=== PATIENT | male | born 1980 | race Caucasian/White ===

== ENCOUNTER 2016-12-07 07:27 | Emergency (ER) | payer OTHER ==
[~2016-12-07] VITALS: Ht 180.3 cm; Wt 130.0 kg
[~2016-12-07 07:27] MED LIST: LEXAPRO20 MG OR; LISINOPRIL20 MG PO; LORAZEPAM2 MG OR; MEDDOSEPAK PO; NAPROSYN500 MG OR; TOPROL XL OR; VYTORIN1 TA1 OR
[2016-12-07] MEDS ORDERED: MOTRIN800 MG PO (08:10)
[2016-12-07 08:17] VITALS: BP 128/92
== END 2016-12-07 08:20 | disposition home or self-care (01) | DRG 554 ==
LOC: ED 07:27
DX: M19.031 Primary osteoarthritis, right wrist (principal); Z98.890 Other specified postprocedural states

== ENCOUNTER 2018-07-15 18:31 | Emergency (ER) | payer OTHER ==
[~2018-07-15] VITALS: Ht 177.8 cm; Wt 122.7 kg
[~2018-07-15 18:31] MED LIST changes: +MOTRIN800 MG PO
[2018-07-15] MEDS ORDERED: METO50TA52 PO (19:07)
[2018-07-15] MEDS ORDERED: TRAMADOL HYDROC50 MG PO (19:08)
[2018-07-15 19:20] LABS: HEMATOCRIT 44.5 % (39.0-50.0); HEMOGLOBIN 14.8 g/dl (14.0-18.0); IMMATURE GRANULOCYTES 0.5 % (0.0-5.0); MEAN CELL VOLUME 87.3 fL CALC (80.0-100.0); MEAN CORPUSCULAR HGB CONC 33.3 g/L CALC (32.0-36.0); NEUT# 7.55 thou/uL (1.82-7.42); RED BLOOD COUNT 5.1 mill/uL (4.70-6.10); RED CELL DISTRI WIDTH 13.2 % (11.5-15.5)
[2018-07-15 19:28] LABS: ALBUMIN 4.2 g/dL (3.2-5.0); ALKALINE PHOSPHATASE 85 u/l (38-126); AMYLASE 86 u/l (30-110); ANION GAP 12 (6-22 (CALC)); BILIRUBIN, TOTAL 0.6 mg/dL (0.0-1.4); BUN 14 mg/dL (9-20); BUN/CREATININE RATIO 11 (12-20 (CALC)); CARBON DIOXIDE 25 mmol/l (22-30); CHLORIDE 106 mmol/l (95-108); CREATININE 1.2 mg/dL (0.7-1.3); GFR > 60 ML/MIN (>=60 (CALC)); GFR FOR AFR.AMER. > 60 ML/MIN (>=60 (CALC)); LIPASE 189 u/l (23-300); SGOT/AST 29 u/l (17-59); SODIUM 139 mmol/l (137-146); TOTAL PROTEIN 6.8 g/dL (6.3-8.2)
[2018-07-15 20:36] LABS: URINE BILIRUBIN - DIPSTICK NEGATIVE (NEGATIVE); URINE BLOOD DIPSTICK NEGATIVE (NEGATIVE); URINE COLOR YELLOW; URINE GLUCOSE - DIPSTICK NEGATIVE (NEGATIVE); URINE KETONE NEGATIVE (NEGATIVE); URINE LEUK ESTERASE NEGATIVE (NEGATIVE); URINE NITRITE - DIPSTICK NEGATIVE (Negative); URINE PROTEIN - DIPSTICK NEGATIVE (NEG-TRACE); URINE UROBILINOGEN - DIPSTICK 0.2 E.U./dL (0.2)
[2018-07-15] MEDS ORDERED: NAPROSYN500 MG PO (21:11)
[2018-07-15 21:40] VITALS: BP 120/65
== END 2018-07-15 21:33 | disposition home or self-care (01) | DRG 313 ==
LOC: ED 18:31
PROVIDERS: Emergency Medicine
DX: R07.89 Other chest pain (principal); R91.1 Solitary pulmonary nodule; I10 Essential (primary) hypertension
CPT/HCPCS: Q9967

== ENCOUNTER 2018-10-01 04:49 | Emergency (ER) | payer OTHER ==
[~2018-10-01] VITALS: Ht 177.8 cm; Wt 122.7 kg
[~2018-10-01 04:49] MED LIST changes: +METO50TA52 PO; +NAPROSYN500 MG PO; +TRAMADOL HYDROC50 MG PO
[2018-10-01] MEDS ORDERED: BYSTOLIC20 MG PO (05:08)
[2018-10-01] MEDS ORDERED: OMEPRAZOLE DR10 MG (05:08)
[2018-10-01 06:03] LABS: HEMATOCRIT 44.5 % (39.0-50.0); HEMOGLOBIN 14.6 g/dl (14.0-18.0); IMMATURE GRANULOCYTES 0.5 % (0.0-5.0); MEAN CELL VOLUME 88.1 fL CALC (80.0-100.0); MEAN CORPUSCULAR HGB 28.9 pG CALC (26.0-32.0); MEAN CORPUSCULAR HGB CONC 32.8 g/L CALC (32.0-36.0); NEUT# 8.22 thou/uL (1.82-7.42); RED BLOOD COUNT 5.05 mill/uL (4.70-6.10)
[2018-10-01 06:22] LABS: ALBUMIN 4.1 g/dL (3.2-5.0); ALKALINE PHOSPHATASE 79 u/l (38-126); AMYLASE 52 u/l (30-110); ANION GAP 14 (6-22 (CALC)); BILIRUBIN, TOTAL 0.6 mg/dL (0.0-1.4); BUN 10 mg/dL (9-20); BUN/CREATININE RATIO 11 (12-20 (CALC)); CARBON DIOXIDE 27 mmol/l (22-30); CHLORIDE 105 mmol/l (95-108); GFR > 60 ML/MIN (>=60 (CALC)); GFR FOR AFR.AMER. > 60 ML/MIN (>=60 (CALC)); LIPASE 119 u/l (23-300); POTASSIUM 3.9 mmol/l (3.5-5.1); SGOT/AST 19 u/l (17-59); SODIUM 142 mmol/l (137-146); TOTAL PROTEIN 7.1 g/dL (6.3-8.2)
[2018-10-01 06:32] LABS: MYOGLOBIN 39 ng/mL (0 - 121)
[2018-10-01 06:41] LABS: URINE BILIRUBIN - DIPSTICK NEGATIVE (NEGATIVE); URINE BLOOD DIPSTICK NEGATIVE (NEGATIVE); URINE COLOR YELLOW; URINE GLUCOSE - DIPSTICK NEGATIVE (NEGATIVE); URINE KETONE NEGATIVE (NEGATIVE); URINE LEUK ESTERASE NEGATIVE (NEGATIVE); URINE NITRITE - DIPSTICK NEGATIVE (Negative); URINE PROTEIN - DIPSTICK NEGATIVE (NEG-TRACE); URINE SPECIFIC GRAVITY 1.015; URINE UROBILINOGEN - DIPSTICK 0.2 E.U./dL (0.2)
[2018-10-01 06:46] LABS: BARBITURATES NEGATIVE (NEGATIVE); COCAINE NEGATIVE (NEGATIVE); METHADONE NEGATIVE (NEGATIVE); OXCYCODONE NEGATIVE (NEGATIVE); TETRAHYDROCANNABIONOL NEGATIVE (NEGATIVE); TRICYLIC ANTIDEPRESSANTS NEGATIVE (NEGATIVE)
[2018-10-01 09:17] VITALS: BP 174/84
== END 2018-10-01 09:17 | disposition home or self-care (01) | DRG 313 ==
LOC: ED 04:49
PROVIDERS: Emergency Medicine
DX: R07.9 Chest pain, unspecified (principal); I10 Essential (primary) hypertension; K21.9 Gastro-esophageal reflux disease without esophagitis

== ENCOUNTER 2018-12-30 19:40 | Emergency (ER) | payer OTHER ==
[~2018-12-30] VITALS: Ht 177.8 cm; Wt 126.0 kg
[~2018-12-30 19:40] MED LIST changes: +BYSTOLIC20 MG PO; +OMEPRAZOLE DR10 MG
[2018-12-30] MEDS ORDERED: ULORIC40 MG PO (19:50)
[2018-12-30] MEDS ORDERED: TYLENOL # 31 TA1 PO (19:51)
[2018-12-30 21:22] VITALS: BP 148/96
== END 2018-12-30 21:22 | disposition home or self-care (01) | DRG 554 ==
LOC: ED 19:40
DX: M19.071 Primary osteoarthritis, right ankle and foot (principal); I10 Essential (primary) hypertension; M10.9 Gout, unspecified

== ENCOUNTER 2019-02-09 08:08 | Emergency (ER) | payer OTHER ==
[~2019-02-09] VITALS: Ht 177.8 cm; Wt 148.0 kg
[~2019-02-09 08:08] MED LIST changes: +TYLENOL # 31 TA1 PO; +ULORIC40 MG PO
[2019-02-09] MEDS ORDERED: BYSTOLIC5 MG PO (08:17)
[2019-02-09] MEDS ORDERED: ULORIC40 MG PO (08:18)
[2019-02-09] MEDS ORDERED: INDOMETHACIN50 MG PO (10:00)
[2019-02-09 10:30] VITALS: BP 167/100
== END 2019-02-09 10:30 | disposition home or self-care (01) | DRG 554 ==
LOC: ED 08:08
DX: M10.022 Idiopathic gout, left elbow (principal); I10 Essential (primary) hypertension

== ENCOUNTER 2019-03-10 | Emergency (ER) | payer OTHER ==
[~2019-03-10] MED LIST changes: +BYSTOLIC5 MG PO; +INDOMETHACIN50 MG PO
[2019-03-10] MEDS ORDERED: TRAMADOL HCL50 MG PO (10:26)
[2019-03-10 11:16] LABS: HEMATOCRIT 43.4 % (39.0-50.0); HEMOGLOBIN 14.3 g/dl (14.0-18.0); IMMATURE GRANULOCYTES 0.4 % (0.0-5.0); MEAN CELL VOLUME 87.9 fL CALC (80.0-100.0); MEAN CORPUSCULAR HGB 28.9 pG CALC (26.0-32.0); MEAN CORPUSCULAR HGB CONC 32.9 g/L CALC (32.0-36.0); NEUT# 6.38 thou/uL (1.82-7.42); RED BLOOD COUNT 4.94 mill/uL (4.70-6.10); RED CELL DISTRI WIDTH 12.6 % (11.5-15.5)
[2019-03-10 11:34] LABS: ALKALINE PHOSPHATASE 87 u/l (38-126); ANION GAP 13 (6-22 (CALC)); BILIRUBIN, TOTAL 0.6 mg/dL (0.0-1.4); BUN 9 mg/dL (9-20); BUN/CREATININE RATIO 10 (12-20 (CALC)); CARBON DIOXIDE 27 mmol/l (22-30); CHLORIDE 102 mmol/l (95-108); CREATININE 0.9 mg/dL (0.7-1.3); GFR > 60 ML/MIN (>=60 (CALC)); GFR FOR AFR.AMER. > 60 ML/MIN (>=60 (CALC)); LIPASE 127 u/l (23-300); POTASSIUM 4.3 mmol/l (3.5-5.1); SGOT/AST 31 u/l (17-59); SODIUM 138 mmol/l (137-146); TOTAL PROTEIN 7.3 g/dL (6.3-8.2)
[2019-03-10] MEDS ORDERED: CIPROFLOXACN500 MG PO (13:18)
[2019-03-10] MEDS ORDERED: ONDANSETRON4 MG PO (13:18)
[2019-03-10] MEDS ORDERED: METRONIDAZOL500 MG PO (13:18)
[2019-03-10 14:10] LABS: URINE BILIRUBIN - DIPSTICK NEGATIVE (NEGATIVE); URINE BLOOD DIPSTICK NEGATIVE (NEGATIVE); URINE COLOR YELLOW; URINE GLUCOSE - DIPSTICK NEGATIVE (NEGATIVE); URINE KETONE NEGATIVE (NEGATIVE); URINE LEUK ESTERASE NEGATIVE (NEGATIVE); URINE NITRITE - DIPSTICK NEGATIVE (Negative); URINE PROTEIN - DIPSTICK NEGATIVE (NEG-TRACE); URINE SPECIFIC GRAVITY <=1.005; URINE UROBILINOGEN - DIPSTICK 0.2 E.U./dL (0.2)
== END 2019-03-10 14:16 | disposition home or self-care (01) | DRG 392 ==
PROVIDERS: Family Medicine
DX: K57.92 Diverticulitis of intestine, part unspecified, without perforation or abscess without bleeding (principal); I10 Essential (primary) hypertension
CPT/HCPCS: Q9967

== ENCOUNTER 2019-03-12 | Emergency (ER) | payer OTHER ==
[~2019-03-12] MED LIST changes: +CIPROFLOXACN500 MG PO; +METRONIDAZOL500 MG PO; +ONDANSETRON4 MG PO; +TRAMADOL HCL50 MG PO
[2019-03-12 20:59] LABS: HEMATOCRIT 45.6 % (39.0-50.0); HEMOGLOBIN 15.2 g/dl (14.0-18.0); IMMATURE GRANULOCYTES 0.4 % (0.0-5.0); MEAN CELL VOLUME 85.7 fL CALC (80.0-100.0); MEAN CORPUSCULAR HGB 28.6 pG CALC (26.0-32.0); MEAN CORPUSCULAR HGB CONC 33.3 g/L CALC (32.0-36.0); NEUT# 7.2 thou/uL (1.82-7.42); RED BLOOD COUNT 5.32 mill/uL (4.70-6.10); RED CELL DISTRI WIDTH 12.4 % (11.5-15.5)
[2019-03-12 21:10] LABS: ALBUMIN 4.1 g/dL (3.2-5.0); ALKALINE PHOSPHATASE 83 u/l (38-126); AMYLASE 48 u/l (30-110); ANION GAP 12 (6-22 (CALC)); BILIRUBIN, TOTAL 0.5 mg/dL (0.0-1.4); BUN 12 mg/dL (9-20); BUN/CREATININE RATIO 11 (12-20 (CALC)); CARBON DIOXIDE 29 mmol/l (22-30); CHLORIDE 101 mmol/l (95-108); CREATININE 1.1 mg/dL (0.7-1.3); GFR > 60 ML/MIN (>=60 (CALC)); GFR FOR AFR.AMER. > 60 ML/MIN (>=60 (CALC)); LIPASE 115 u/l (23-300); POTASSIUM 4.4 mmol/l (3.5-5.1); SGOT/AST 32 u/l (17-59); SODIUM 137 mmol/l (137-146); TOTAL PROTEIN 7.7 g/dL (6.3-8.2)
[2019-03-12 22:53] LABS: URINE BILIRUBIN - DIPSTICK NEGATIVE (NEGATIVE); URINE BLOOD DIPSTICK NEGATIVE (NEGATIVE); URINE COLOR YELLOW; URINE GLUCOSE - DIPSTICK NEGATIVE (NEGATIVE); URINE KETONE NEGATIVE (NEGATIVE); URINE LEUK ESTERASE NEGATIVE (NEGATIVE); URINE NITRITE - DIPSTICK NEGATIVE (Negative); URINE PH 6.5 (4.5-8.0); URINE PROTEIN - DIPSTICK NEGATIVE (NEG-TRACE); URINE UROBILINOGEN - DIPSTICK 0.2 E.U./dL (0.2)
[2019-03-12] MEDS ORDERED: CIPROFLOXACN500 MG PO (23:52)
[2019-03-12] MEDS ORDERED: ZOFRAN4 MG/TAB PO (23:53)
[2019-03-12] MEDS ORDERED: METRONIDAZOL500 MG PO (23:53)
[2019-03-13] MEDS ORDERED: TORADOL PO (00:01)
== END 2019-03-13 00:10 | disposition home or self-care (01) | DRG 392 ==
PROVIDERS: Emergency Medicine
DX: K57.30 Diverticulosis of large intestine without perforation or abscess without bleeding (principal); I10 Essential (primary) hypertension
CPT/HCPCS: Q9967

== ENCOUNTER 2019-05-25 | Emergency (ER) | payer OTHER ==
[~2019-05-25] MED LIST changes: +TORADOL PO; +ZOFRAN4 MG/TAB PO
[2019-05-25] MEDS ORDERED: BYSTOLIC10 MG PO (10:13)
[2019-05-25 10:32] LABS: HEMATOCRIT 47.4 % (39.0-50.0); HEMOGLOBIN 15.4 g/dl (14.0-18.0); IMMATURE GRANULOCYTES 0.5 % (0.0-5.0); MEAN CELL VOLUME 89.1 fL CALC (80.0-100.0); MEAN CORPUSCULAR HGB 28.9 pG CALC (26.0-32.0); MEAN CORPUSCULAR HGB CONC 32.5 g/dL CAL (32.0-36.0); NEUT# 10.58 thou/uL (1.82-7.42); RED BLOOD COUNT 5.32 mill/uL (4.70-6.10); RED CELL DISTRI WIDTH 13.4 % (11.5-15.5)
[2019-05-25 10:59] LABS: ALBUMIN 4.7 g/dL (3.2-5.0); ALKALINE PHOSPHATASE 87 u/l (38-126); ANION GAP 14 (6-22 (CALC)); BUN 14 mg/dL (9-20); BUN/CREATININE RATIO 12 (12-20 (CALC)); CARBON DIOXIDE 27 mmol/l (22-30); CHLORIDE 101 mmol/l (95-108); CREATININE 1.2 mg/dL (0.7-1.3); GFR > 60 ML/MIN (>=60 (CALC)); GFR FOR AFR.AMER. > 60 ML/MIN (>=60 (CALC)); POTASSIUM 3.9 mmol/l (3.5-5.1); SGOT/AST 33 u/l (17-59); SODIUM 139 mmol/l (137-146); TOTAL PROTEIN 8.4 g/dL (6.3-8.2)
[2019-05-25 11:00] LABS: BILIRUBIN, TOTAL 0.9 mg/dL (0.0-1.4)
[2019-05-25 11:09] LABS: BARBITURATES NEGATIVE (NEGATIVE); COCAINE NEGATIVE (NEGATIVE); METHADONE NEGATIVE (NEGATIVE); OXCYCODONE NEGATIVE (NEGATIVE); TETRAHYDROCANNABIONOL NEGATIVE (NEGATIVE); TRICYLIC ANTIDEPRESSANTS NEGATIVE (NEGATIVE)
== END 2019-05-25 11:30 | disposition home or self-care (01) | DRG 313 ==
PROVIDERS: Family Medicine
DX: R07.9 Chest pain, unspecified (principal); I10 Essential (primary) hypertension; K21.9 Gastro-esophageal reflux disease without esophagitis

== ENCOUNTER 2019-07-27 16:06 | Emergency (ER) | payer OTHER ==
[~2019-07-27 16:06] MED LIST changes: +BYSTOLIC10 MG PO
[2019-07-27] MEDS ORDERED: DILTIAZEM60 MG PO (16:27)
[2019-07-27] MEDS ORDERED: DICLOFENAC SODI75 MG PO (16:27)
[2019-07-27] MEDS ORDERED: SOMA350 MG PO (16:27)
[2019-07-27] MEDS ORDERED: LORTAB 1010 MG PO (19:21)
[2019-07-27 19:58] VITALS: BP 184/83
== END 2019-07-27 19:58 | disposition home or self-care (01) | DRG 552 ==
LOC: ED 16:06
DX: S13.9XXA Sprain of joints and ligaments of unspecified parts of neck, initial encounter (principal); I10 Essential (primary) hypertension; X58.XXXA Exposure to other specified factors, initial encounter

== ENCOUNTER 2019-08-24 09:33 | Emergency (ER) | payer OTHER ==
[~2019-08-24] VITALS: Ht 177.8 cm; Wt 136.6 kg
[~2019-08-24 09:33] MED LIST changes: +DICLOFENAC SODI75 MG PO; +DILTIAZEM60 MG PO; +LORTAB 1010 MG PO; +SOMA350 MG PO
[2019-08-24] MEDS ORDERED: DIAZEPAM10 MG PO (09:47)
[2019-08-24 10:08] LABS: HEMATOCRIT 46.8 % (39.0-50.0); HEMOGLOBIN 15.2 g/dl (14.0-18.0); IMMATURE GRANULOCYTES 0.5 % (0.0-5.0); MEAN CELL VOLUME 88.3 fL CALC (80.0-100.0); MEAN CORPUSCULAR HGB 28.7 pG CALC (26.0-32.0); MEAN CORPUSCULAR HGB CONC 32.5 g/dL CAL (32.0-36.0); NEUT# 5.16 thou/uL (1.82-7.42); RED BLOOD COUNT 5.3 mill/uL (4.70-6.10); RED CELL DISTRI WIDTH 13.5 % (11.5-15.5)
[2019-08-24 10:16] LABS: ALBUMIN 4.1 g/dL (3.2-5.0); ALKALINE PHOSPHATASE 69 u/l (38-126); ANION GAP 11 (6-22 (CALC)); BILIRUBIN, TOTAL 0.8 mg/dL (0.0-1.4); BUN 11 mg/dL (9-20); BUN/CREATININE RATIO 8 (12-20 (CALC)); CARBON DIOXIDE 26 mmol/l (22-30); CHLORIDE 103 mmol/l (95-108); CREATININE 1.3 mg/dL (0.7-1.3); GFR > 60 ML/MIN (>=60 (CALC)); GFR FOR AFR.AMER. > 60 ML/MIN (>=60 (CALC)); POTASSIUM 4.1 mmol/l (3.5-5.1); SGOT/AST 32 u/l (17-59); SODIUM 136 mmol/l (137-146)
[2019-08-24 10:25] LABS: ACT PARTIAL THROMBO TIME 25.4 SECONDS (20.0-32.5); D-DIMER 0.51 mg/L (0.19-0.60); INTERNATIONAL NORMALIZED RATIO 1.1 RATIO (0.7-1.3); PROTHROMBIN TIME 11.1 SECONDS (9.0-12.5)
[2019-08-24 10:28] LABS: MYOGLOBIN 79 ng/mL (0 - 121)
[2019-08-24 11:04] LABS: URINE BILIRUBIN - DIPSTICK NEGATIVE (NEGATIVE); URINE BLOOD DIPSTICK NEGATIVE (NEGATIVE); URINE COLOR YELLOW; URINE GLUCOSE - DIPSTICK NEGATIVE (NEGATIVE); URINE KETONE NEGATIVE (NEGATIVE); URINE LEUK ESTERASE NEGATIVE (NEGATIVE); URINE NITRITE - DIPSTICK NEGATIVE (Negative); URINE PROTEIN - DIPSTICK NEGATIVE (NEG-TRACE); URINE SPECIFIC GRAVITY 1.025; URINE UROBILINOGEN - DIPSTICK 0.2 E.U./dL (0.2)
[2019-08-24 13:35] VITALS: BP 136/88
== END 2019-08-24 13:53 | disposition home or self-care (01) | DRG 313 ==
LOC: ED 09:33
PROVIDERS: Emergency Medicine
DX: R07.9 Chest pain, unspecified (principal); I10 Essential (primary) hypertension
CPT/HCPCS: J2060

== ENCOUNTER 2019-08-28 18:52 | Emergency (ER) | payer OTHER ==
[~2019-08-28] VITALS: Ht 177.8 cm; Wt 136.0 kg
[~2019-08-28 18:52] MED LIST changes: +DIAZEPAM10 MG PO
[2019-08-28 22:26] VITALS: BP 130/79
== END 2019-08-28 22:26 | disposition left against medical advice (07) | DRG 914 ==
LOC: ED 18:52
DX: S61.422A Laceration with foreign body of left hand, initial encounter (principal); I10 Essential (primary) hypertension; W25.XXXA Contact with sharp glass, initial encounter; Y93.G1 Activity, food preparation and clean up; Y92.000 Kitchen of unspecified non-institutional (private) residence as the place of occurrence of the external cause; Z91.19 Patient's noncompliance with other medical treatment and regimen

== ENCOUNTER 2020-02-20 12:10 | Emergency (ER) | payer SELFPAY ==
[~2020-02-20] VITALS: Ht 177.8 cm; Wt 125.0 kg
[2020-02-20] MEDS ORDERED: SILDENAFIL CIT100 MG (12:40)
[2020-02-20] MEDS ORDERED: ISOSORB MONO30 MG PO (12:41)
[2020-02-20] MEDS ORDERED: ROVASTATIN PO (12:43)
[2020-02-20] MEDS ORDERED: PROBENECID500 MG PO (12:43)
[2020-02-20] MEDS ORDERED: PROTONIX40 M2 PO (12:44)
[2020-02-20] MEDS ORDERED: DEPO-TESTOS200 MG/M1 IM (12:44)
[2020-02-20] MEDS ORDERED: ANASTROZOLE1 MG PO (12:44)
[2020-02-20] MEDS ORDERED: CLONAZEPAM0.5 M1 PO (12:45)
[2020-02-20] MEDS ORDERED: VITAMIN D2400 UNIT PO (12:45)
[2020-02-20] MEDS ORDERED: DICLOFENAC75 MG PO (12:54)
[2020-02-20] MEDS ORDERED: ISOSORBIDE MONO60 MG PO (12:54)
[2020-02-20] MEDS ORDERED: ROSUVASTATIN CA20 MG PO (12:54)
[2020-02-20] MEDS ORDERED: DILTIAZEM HCL360 M2 PO (12:54)
[2020-02-20 13:05] VITALS: BP 158/105
== END 2020-02-20 13:05 | disposition home or self-care (01) | DRG 563 ==
LOC: ED 12:10
DX: S29.011A Strain of muscle and tendon of front wall of thorax, initial encounter (principal); I10 Essential (primary) hypertension; T50.916A Underdosing of multiple unspecified drugs, medicaments and biological substances, initial encounter; M10.9 Gout, unspecified; K21.9 Gastro-esophageal reflux disease without esophagitis; Z91.120 Patient's intentional underdosing of medication regimen due to financial hardship; X50.9XXA Other and unspecified overexertion or strenuous movements or postures, initial encounter

== ENCOUNTER 2023-03-28 17:01 | Emergency (ER) | payer SELFPAY ==
[~2023-03-28] VITALS: Ht 167.6 cm; Wt 104.0 kg
[2023-03-28] VITALS (7 sets, daily range): BP systolic 143–160; BP diastolic 103–111
[~2023-03-28 17:01] MED LIST changes: +ANASTROZOLE1 MG PO; +CLONAZEPAM0.5 M1 PO; +DEPO-TESTOS200 MG/M1 IM; +DICLOFENAC75 MG PO; +DILTIAZEM HCL360 M2 PO; +ISOSORB MONO30 MG PO; +ISOSORBIDE MONO60 MG PO; +PROBENECID500 MG PO; +PROTONIX40 M2 PO; +ROSUVASTATIN CA20 MG PO; +ROVASTATIN PO; +SILDENAFIL CIT100 MG; +VITAMIN D2400 UNIT PO
[2023-03-28 19:06] LABS: BASO% 0.5 % (0-3); EOS% 1.9 % (0-8); HEMATOCRIT 42.9 % (39.0-50.0); HEMOGLOBIN 14.1 g/dl (14.0-18.0); IMMATURE GRANULOCYTES 0.3 % (0.0-5.0); LYMPH% 6.6 % (15-41); MEAN CELL VOLUME 86.5 fL CALC (80.0-100.0); MEAN CORPUSCULAR HGB 28.4 pG CALC (26.0-32.0); MEAN CORPUSCULAR HGB CONC 32.9 g/dL CAL (32.0-36.0); MONO% 6.5 % (2-13); NEUT# 13.12 thou/uL (1.82-7.42); NEUT% 84.2 % (42-76); RED BLOOD COUNT 4.96 mill/uL (4.70-6.10)
[2023-03-28 19:13] LABS: ALBUMIN 4.3 g/dL (3.2-5.0); ANION GAP 13 (6-22 (CALC)); BUN 12 mg/dL (9-20); BUN/CREATININE RATIO 12 (12-20 (CALC)); CARBON DIOXIDE 24 mmol/l (22-30); CHLORIDE 106 mmol/l (95-108); CREATININE 1.1 mg/dL (0.7-1.3); GFR FOR AFR.AMER. > 60 ML/MIN (>=60 (CALC)); GFR OTHER RACES > 60 ML/MIN (>=60 (CALC)); LIPASE 80 u/l (23-300); POTASSIUM 4.1 mmol/l (3.5-5.1); SGOT/AST 25 u/l (17-59); SODIUM 138 mmol/l (137-146); TOTAL PROTEIN 7.7 g/dL (6.3-8.2)
[2023-03-28 19:14] LABS: ALKALINE PHOSPHATASE 155 u/l (38-126); BILIRUBIN, TOTAL 1.9 mg/dL (0.2-1.3)
[2023-03-28 20:03] LABS: URINE BILIRUBIN - DIPSTICK Negative (NEGATIVE); URINE BLOOD DIPSTICK Negative (NEGATIVE); URINE GLUCOSE - DIPSTICK Negative (NEGATIVE); URINE KETONE Negative (NEGATIVE); URINE LEUK ESTERASE Negative (NEGATIVE); URINE NITRITE - DIPSTICK Negative (Negative); URINE PROTEIN - DIPSTICK Negative (NEG-TRACE); URINE SPECIFIC GRAVITY 1.025; URINE UROBILINOGEN - DIPSTICK 0.2 E.U./dL (0.2)
[2023-03-28 20:04] LABS: URINE COLOR Yellow
== END 2023-03-29 07:53 | disposition home or self-care (01) | DRG 446 ==
LOC: ED 17:01
PROVIDERS: Nurse Practitioner
DX: K81.9 Cholecystitis, unspecified (principal); M10.042 Idiopathic gout, left hand; I10 Essential (primary) hypertension; G89.4 Chronic pain syndrome; K21.9 Gastro-esophageal reflux disease without esophagitis; Z79.01 Long term (current) use of anticoagulants; L50.0 Allergic urticaria; T40.2X5A Adverse effect of other opioids, initial encounter; Z86.711 Personal history of pulmonary embolism
CPT/HCPCS: Q9967

== ENCOUNTER 2023-04-01 19:24 | Emergency (ER) | payer SELFPAY ==
[~2023-04-01] VITALS: Ht 167.6 cm; Wt 109.0 kg
[2023-04-01] VITALS (36 sets, daily range): BP systolic 107–172; BP diastolic 71–122
[2023-04-01] MEDS ORDERED: AMLODIPINE BESY10 MG PO (19:35)
[2023-04-01] MEDS ORDERED: TOPROL XL25 M1 PO (19:35)
[2023-04-01] MEDS ORDERED: ELIQUIS5 MG PO (19:36)
[2023-04-01 20:50] LABS: BASO% 0.6 % (0-3); EOS% 3.4 % (0-8); IMMATURE GRANULOCYTES 0.5 % (0.0-5.0); LYMPH% 26.4 % (15-41); MEAN CELL VOLUME 86.4 fL CALC (80.0-100.0); MEAN CORPUSCULAR HGB 28.1 pG CALC (26.0-32.0); MEAN CORPUSCULAR HGB CONC 32.5 g/dL CAL (32.0-36.0); NEUT# 9.26 thou/uL (1.82-7.42); NEUT% 60.1 % (42-76); RED BLOOD COUNT 5.9 mill/uL (4.70-6.10); RED CELL DISTRI WIDTH 12.8 % (11.5-15.5)
[2023-04-01 20:52] LABS: HEMOGLOBIN 16.6 g/dl (14.0-18.0)
[2023-04-01 21:48] LABS: ALBUMIN 4.4 g/dL (3.2-5.0); ALKALINE PHOSPHATASE 179 u/l (38-126); ANION GAP 14 (6-22 (CALC)); BUN 15 mg/dL (9-20); BUN/CREATININE RATIO 13 (12-20 (CALC)); CARBON DIOXIDE 26 mmol/l (22-30); CHLORIDE 103 mmol/l (95-108); CREATININE 1.2 mg/dL (0.7-1.3); GFR FOR AFR.AMER. > 60 ML/MIN (>=60 (CALC)); GFR OTHER RACES > 60 ML/MIN (>=60 (CALC)); POTASSIUM 3.6 mmol/l (3.5-5.1); SGOT/AST 29 u/l (17-59); SODIUM 140 mmol/l (137-146); TOTAL PROTEIN 8.3 g/dL (6.3-8.2)
[2023-04-02] VITALS (17 sets, daily range): BP systolic 105–158; BP diastolic 62–136
[2023-04-02 03:00] LABS: ACT PARTIAL THROMBO TIME 26.1 SECONDS (20.0-32.5); INTERNATIONAL NORMALIZED RATIO 1.1 RATIO (0.7-1.3); PROTHROMBIN TIME 10.2 SECONDS (9.0-12.5)
== END 2023-04-02 03:20 | DRG 176 ==
LOC: ED 19:24
PROVIDERS: Family Medicine
DX: I26.99 Other pulmonary embolism without acute cor pulmonale (principal); M10.042 Idiopathic gout, left hand; I10 Essential (primary) hypertension; K21.9 Gastro-esophageal reflux disease without esophagitis; T50.996A Underdosing of other drugs, medicaments and biological substances, initial encounter; Z91.128 Patient's intentional underdosing of medication regimen for other reason; Z86.711 Personal history of pulmonary embolism; Z79.01 Long term (current) use of anticoagulants
CPT/HCPCS: Q9967

== ENCOUNTER 2023-10-14 13:05 | Emergency (ER) | payer OTHER ==
[~2023-10-14] VITALS: Ht 167.6 cm; Wt 108.0 kg
[~2023-10-14 13:05] MED LIST changes: +AMLODIPINE BESY10 MG PO; +ELIQUIS5 MG PO; +TOPROL XL25 M1 PO
[2023-10-14 13:13] VITALS: BP 127/94
[2023-10-14 13:15] VITALS: BP 124/102
[2023-10-14 13:30] VITALS: BP 124/79
[2023-10-14] MEDS ORDERED: DEXAMETHASONE SOD. PHOSPHATE 10 MG/ML VIAL IM ONE (13:40)
[2023-10-14] MEDS ORDERED: diazePAM 10 MG/2 ML VIAL IM ONE ×2 (13:40→17:00)
[2023-10-14 13:46] VITALS: BP 134/104
[2023-10-14 14:15] VITALS: BP 139/96
[2023-10-14] MEDS ORDERED: KETOROLAC TROMETHAMINE 30 MG/ML SDV IV ONE (17:00)
[2023-10-14 18:08] VITALS: BP 134/104
== END 2023-10-14 18:08 | DRG 536 ==
LOC: ED 13:05
DX: S72.002A Fracture of unspecified part of neck of left femur, initial encounter for closed fracture (principal); M87.852 Other osteonecrosis, left femur; M87.851 Other osteonecrosis, right femur; I10 Essential (primary) hypertension; K21.9 Gastro-esophageal reflux disease without esophagitis; X58.XXXA Exposure to other specified factors, initial encounter; Z86.711 Personal history of pulmonary embolism

== ENCOUNTER 2023-12-10 13:14 | Emergency (ER) | payer OTHER ==
[2023-12-10] VITALS (40 sets, daily range): BP systolic 125–168; BP diastolic 82–119
[~2023-12-10] VITALS: Ht 167.6 cm; Wt 111.0 kg
[2023-12-10] MEDS ORDERED: MORPHINE SULFATE 4 MG/ML VIAL IV ONE ×2 (13:30→17:30)
[2023-12-10 15:08] LABS: BASO% 0.5 % (0-3); EOS% 2.7 % (0-8); HEMATOCRIT 42.8 % (39.0-50.0); HEMOGLOBIN 13.5 g/dl (14.0-18.0); IMMATURE GRANULOCYTES 0.2 % (0.0-5.0); LYMPH% 18.2 % (15-41); MEAN CELL VOLUME 88.2 fL CALC (80.0-100.0); MEAN CORPUSCULAR HGB 27.8 pG CALC (26.0-32.0); MEAN CORPUSCULAR HGB CONC 31.5 g/dL CAL (32.0-36.0); MONO% 5.8 % (2-13); NEUT# 6.71 thou/uL (1.82-7.42); NEUT% 72.6 % (42-76); RED BLOOD COUNT 4.85 mill/uL (4.70-6.10); RED CELL DISTRI WIDTH 12.6 % (11.5-15.5)
[2023-12-10 15:29] LABS: ALBUMIN 4.3 g/dL (3.2-5.0); ALKALINE PHOSPHATASE 158 u/l (38-126); ANION GAP 9 (6-22 (CALC)); BILIRUBIN, TOTAL 1.2 mg/dL (0.2-1.3); BUN 8 mg/dL (9-20); BUN/CREATININE RATIO 11 (12-20 (CALC)); CARBON DIOXIDE 25 mmol/l (22-30); CHLORIDE 109 mmol/l (95-108); CREATININE 0.7 mg/dL (0.7-1.3); ESTIMATED GFR 118 ML/MIN (>=90 (CALC)); SGOT/AST 28 u/l (17-59); SODIUM 139 mmol/l (137-146); TOTAL PROTEIN 7.1 g/dL (6.3-8.2)
[2023-12-10] MEDS ORDERED: ORPHENADRINE CITRATE 30 MG/ML AMP IV ONE (20:35)
[2023-12-10] MEDS ORDERED: HYDROmorphone HCL 2 MG/AMP IV ONE (20:35)
[2023-12-11] VITALS (12 sets, daily range): BP systolic 122–158; BP diastolic 90–119
[2023-12-11] MEDS ORDERED: HYDROmorphone HCL 2 MG/AMP IV ONE (01:10)
== END 2023-12-11 03:58 | disposition short-term general hospital (02) | DRG 536 ==
LOC: ED 13:14
PROVIDERS: Emergency Medicine
DX: S72.002A Fracture of unspecified part of neck of left femur, initial encounter for closed fracture (principal); R07.9 Chest pain, unspecified; N20.2 Calculus of kidney with calculus of ureter; I10 Essential (primary) hypertension; K21.9 Gastro-esophageal reflux disease without esophagitis; M10.9 Gout, unspecified; Z86.711 Personal history of pulmonary embolism; X58.XXXA Exposure to other specified factors, initial encounter